=== PATIENT | female | born 1945 | race Caucasian/White ===

== ENCOUNTER 2020-10-24 09:24 | Outpatient (CLI) | payer MEDICARE, OTHER ==
[2020-10-24 11:15] LABS: Hemoglobin 12.6 g/dL (12.0-15.5); Mean Corpuscular Hemoglobin 30.8 pg (27.0-33.0); Mean Corpuscular Volume 96.3 fl (81.6-98.3); Mean Platelet Volume 10.3 fl (7.4-10.4); Platelet Count 275 10x3/uL (150-450); RBC Distribution Width 12.9 % (11.5-14.5); Red Blood Cell (RBC) Count 4.09 10x6/uL (3.90-5.03); White Blood Cell (WBC) Count 5.5 10x3/uL (3.5-10.5)
[2020-10-24 11:25] LABS: Anion Gap 12 mmol/L (10-20); BUN (Urea Nitrogen) 13 mg/dL (9.8-20.1); Calc. Creatinine Clearance 0 mL/min (70-130); Carbon Dioxide 29 mmol/L (23-31); Chloride 103 mmol/L (98-107); Glucose 84 mg/dL (83-110); Potassium 3.7 mmol/L (3.5-5.1); Sodium 140 mmol/L (136-145)
[2020-10-24 11:38] LABS: INR-International Normal Ratio 0.9; PTT 23.9 sec (22.0-33.0); Prothrombin Time 10.3 sec (9.5-12.1)
[2020-10-24 18:20] LABS: SARS-CoV-2 PCR by NAA Not Detected (NotDetected)
== END 2020-10-24 09:25 | disposition home or self-care (01) ==
LOC: LABBT 09:24
PROVIDERS: ATTEND Surgery
DX: Z01.818 Encounter for other preprocedural examination (principal); M51.16 Intervertebral disc disorders with radiculopathy, lumbar region; M48.062 Spinal stenosis, lumbar region with neurogenic claudication; Z20.822 Contact with and (suspected) exposure to COVID-19
CPT/HCPCS: 80048; 85027; 85610; 85730; 93005; U0003; U0005; 87635; 93010

== ENCOUNTER 2020-10-31 10:49 | Outpatient (CLI) | payer MEDICARE, OTHER ==
[2020-10-31 19:01] LABS: SARS-CoV-2 PCR by NAA Not Detected (NotDetected)
== END 2020-10-31 10:50 | disposition home or self-care (01) ==
LOC: LABBT 10:49
PROVIDERS: ATTEND Surgery
DX: Z01.812 Encounter for preprocedural laboratory examination (principal); M51.16 Intervertebral disc disorders with radiculopathy, lumbar region; M48.062 Spinal stenosis, lumbar region with neurogenic claudication; Z20.822 Contact with and (suspected) exposure to COVID-19
CPT/HCPCS: U0003; U0005; 87635

== ENCOUNTER 2020-11-03 06:58 | Day surgery (SDC) | payer MEDICARE, OTHER ==
[2020-11-02 11:41] VITALS: BMI 19.8
[2020-11-03] MEDS ORDERED: Fentanyl 100 MCG/2 ML VIAL ONE ×5 (07:18→15:20)
[2020-11-03] MEDS ORDERED: Thrombin 5000 UNITS/5 ML VIAL ONE (07:23)
[2020-11-03] MEDS ORDERED: Midazolam HCl 2 mg/2 ml Vial ONE (07:38)
[2020-11-03] MEDS ORDERED: ePHEDrine Sulfate 50 MG/10 ML VIAL ONE (08:10)
[2020-11-03] MEDS ORDERED: PHENYLEPHRINE-NS 100 MCG/ML 10 ML SYRINGE ONE (08:10)
[2020-11-03] MEDS ORDERED: Dexamethasone 20 MG/5 ML VIAL ONE (08:10)
[2020-11-03] MEDS ORDERED: PROPOFOL 200 MG/20 ML VIAL ONE (08:10)
[2020-11-03] MEDS ORDERED: Rocuronium Bromide 10 MG/ML (10ML VIAL) ONE (08:10)
[2020-11-03] MEDS ORDERED: Ondansetron PF 4 MG/2 ML Vial ONE (08:10)
[2020-11-03] MEDS ORDERED: Lidocaine 1% PF 5 ML VIAL ONE (08:10)
[2020-11-03] MEDS ORDERED: Glycopyrrolate 0.2 MG/ML 5 ML SYRINGE ONE (08:10)
[2020-11-03] MEDS ORDERED: Phenylephrine 10 MG/ML VIAL ONE (09:13)
[2020-11-03] MEDS ORDERED: Milk Of Magnesia 30 ML UDCUP PO PRN (11:29)
[2020-11-03] MEDS ORDERED: Mag-Al 1200 mg/1200 mg/30 ML UDCUP PO PRN (11:29)
[2020-11-03] MEDS ORDERED: Bisacodyl 10 MG SUPP PR PRN (11:29)
[2020-11-03] MEDS ORDERED: Ondansetron PF 4 MG/2 ML Vial IVP PRN (11:29)
[2020-11-03] MEDS ORDERED: Morphine 2 MG/ML VIAL SLOW IVP PRN (11:29)
[2020-11-03] MEDS ORDERED: tiZANidine HCl 4 MG TAB ONE (13:01)
[2020-11-03] MEDS ORDERED: HYDROcodone/Acetaminophen 5/325 mg Tablet ONE (13:02)
[2020-11-03] MEDS: CEFAZOLIN 2 GM in Premix Bag 1 BAG IVPB SCH (17:08)
[2020-11-03] MEDS: traMADol HCl 50 MG TAB PO PRN ×2 (17:08→23:08)
[2020-11-03] MEDS: Sodium Chloride 0.9% 1,000 ML IV SCH (17:13)
[2020-11-03] MEDS: HYDROcodone/Acetaminophen 7.5/325 mg Tablet PO PRN (19:21)
[2020-11-03] MEDS: Acetaminophen 325 MG TAB PO PRN (21:16)
[2020-11-03] MEDS: tiZANidine HCl 4 MG TAB PO PRN (21:16)
[2020-11-04] MEDS: HYDROcodone/Acetaminophen 7.5/325 mg Tablet PO PRN ×2 (01:15→05:41)
[2020-11-04] MEDS: CEFAZOLIN 2 GM in Premix Bag 1 BAG IVPB SCH (01:16)
[2020-11-04] MEDS: Sodium Chloride 0.9% 1,000 ML IV SCH (01:23)
[2020-11-04] MEDS: Acetaminophen 325 MG TAB PO PRN (03:31)
[2020-11-04 05:45] LABS: #Lymphocytes 1.1 thou/uL (1.20-3.40); #Monocytes 0.8 thou/uL (0.11-0.59); #Neutrophils 8.2 thou/uL (1.40-6.50); %Eosinophils 0.1 % (0.0-10.0); %Lymphocytes 10.8 % (21.0-51.0); %Monocytes 8.2 % (0.0-10.0); %Neutrophils 80.8 % (42.0-75.0); Hemoglobin 9.3 g/dL (12.0-16.0); Mean Corpuscular HGB CONC 32.7 g/dL (32.0-36.0); Mean Corpuscular Hemoglobin 31.9 pg (27.0-31.0); Mean Corpuscular Volume 97.4 fL (78.0-98.0); Mean Platelet Volume 8.1 fL (7.4-10.4); Platelet Count 216 thou/uL (130-400); RBC Distribution Width 11.7 % (11.5-14.5); Red Blood Cell (RBC) Count 2.93 mill/uL (4.20-5.40); White Blood Cell (WBC) Count 10.1 thou/uL (4.8-10.8)
[2020-11-04] MEDS ORDERED: Levothyroxine Sodium 50 MCG TAB PO SCH (06:00)
[2020-11-04 06:09] LABS: Anion Gap 12 mmol/L (10-20); BUN (Urea Nitrogen) 12 mg/dL (9.8-20.1); Calc. Creatinine Clearance 67 mL/min (70-130); Calcium 8.9 mg/dL (7.8-10.44); Carbon Dioxide 24 mmol/L (23-31); Chloride 104 mmol/L (98-107); Glucose 113 mg/dL (83-110); Sodium 136 mmol/L (136-145)
[2020-11-04 07:51] VITALS: BP 91/49; TEMP 98.2
[2020-11-04] MEDS: traMADol HCl 50 MG TAB PO PRN (08:28)
[2020-11-04] MEDS ORDERED: Multivit, Therapeutic 1 TAB PO SCH (09:00)
[2020-11-04] MEDS: tiZANidine HCl 4 MG TAB PO PRN (11:08)
== END 2020-11-04 11:19 | disposition home or self-care (01) ==
LOC: SDC 06:58 → SURG A 11:29 → SDC 11-04 11:19
PROVIDERS: ATTEND Surgery
PROC: 01NB0ZZ Release Lumbar Nerve, Open Approach (ICD-10-PCS; principal; 2020-11-03)
DX: M51.16 Intervertebral disc disorders with radiculopathy, lumbar region (principal); M48.062 Spinal stenosis, lumbar region with neurogenic claudication; Z79.82 Long term (current) use of aspirin; Z79.899 Other long term (current) drug therapy; Z88.5 Allergy status to narcotic agent; Z88.8 Allergy status to other drugs, medicaments and biological substances
CPT/HCPCS: 63047; 63048; 63056; 76000; 80048; 85025; J2270; 36415; J0690; J1100; J2250; J2370; J2405; J2704; J3010; J3370

== ENCOUNTER 2021-08-28 11:01 | Outpatient (CLI) | payer MEDICARE, OTHER | END 2021-08-28 11:02 | disposition home or self-care (01) | LOC: CT 11:01 | PROVIDERS: ATTEND Surgery | DX: M48.062 Spinal stenosis, lumbar region with neurogenic claudication (principal); M51.36 Other intervertebral disc degeneration, lumbar region; M48.07 Spinal stenosis, lumbosacral region; M41.9 Scoliosis, unspecified | CPT/HCPCS: 72131 ==

== ENCOUNTER 2021-12-02 11:19 | Inpatient (IN) | payer MEDICARE, OTHER ==
[~2021-12-02 11:19] MED LIST: Iopamidol 370 76% 100 ML VIAL ONE
[2021-12-02 12:46] LABS: ALT (SGPT) 13 U/L (8-55); AST (SGOT) 20 U/L (5-34); Albumin 3.7 g/dL (3.4-4.8); Alkaline Phosphatase 140 U/L (40-110); Anion Gap 17 mmol/L (10-20); BUN (Urea Nitrogen) 19 mg/dL (9.8-20.1); Bilirubin, Total 0.5 mg/dL (0.2-1.2); CK (CPK) 21 U/L (29-168); Calc. Creatinine Clearance 0 mL/min (70-130); Calcium 9.6 mg/dL (7.8-10.44); Carbon Dioxide 22 mmol/L (23-31); Chloride 102 mmol/L (98-107); Globulin 3.4 g/dL (2.4-3.5); Glucose 80 mg/dL (83-110); Magnesium 2.2 mg/dL (1.6-2.6); Potassium 3.8 mmol/L (3.5-5.1); Protein, Total 7.1 g/dL (5.8-8.1); Sodium 137 mmol/L (136-145)
[2021-12-02 13:03] LABS: Free T4 (Free Thyroxine) 1.21 ng/dL (0.70-1.48)
[2021-12-02 14:02] LABS: #Eosinphils 0.4 thou/uL (0.0-0.7); #Lymphocytes 2.8 thou/uL (1.20-3.40); #Monocytes 0.9 thou/uL (0.11-0.59); #Neutrophils 6.9 thou/uL (1.40-6.50); %Basophils 0.4 % (0.0-1.0); %Eosinophils 3.3 % (0.0-10.0); %Lymphocytes 25.4 % (21.0-51.0); %Monocytes 8.3 % (0.0-10.0); %Neutrophils 62.5 % (42.0-75.0); Hemoglobin 10.8 g/dL (12.0-16.0); Mean Corpuscular HGB CONC 31.5 g/dL (32.0-36.0); Mean Corpuscular Hemoglobin 30.3 pg (27.0-31.0); Mean Corpuscular Volume 96.2 fL (78.0-98.0); Mean Platelet Volume 7.5 fL (7.4-10.4); Platelet Count 305 thou/uL (130-400); Red Blood Cell (RBC) Count 3.56 mill/uL (4.20-5.40); White Blood Cell (WBC) Count 11.1 thou/uL (4.8-10.8)
[2021-12-02 14:16] LABS: INR-International Normal Ratio 0.9; Prothrombin Time 12.6 sec (12.0-14.7)
[2021-12-02 14:17] LABS: PTT 22.8 sec (22.9-36.1)
[2021-12-02] MEDS ORDERED: Enoxaparin Sodium 80 MG/0.8 ML SYRINGE ONE (14:30)
[2021-12-02] MEDS ORDERED: Morphine 2 MG/ML VIAL SLOW IVP PRN (14:37)
[2021-12-02] MEDS ORDERED: traMADol HCl 50 MG TAB PO PRN ×2 (14:37)
[2021-12-02] MEDS ORDERED: Acetaminophen 325 MG TAB PO PRN (14:37)
[2021-12-02] MEDS ORDERED: tiZANidine HCl 4 MG TAB PO PRN (14:42)
[2021-12-02] MEDS ORDERED: Sodium Chloride 0.9% 1,000 ML IV SCH (14:45)
[2021-12-02] MEDS: HYDROcodone/Acetaminophen 7.5/325 mg Tablet PO PRN ×2 (16:54→20:45)
[2021-12-02] MEDS: Sodium Chloride 0.9% 1,000 ML IV SCH (16:55)
[2021-12-02 16:59] VITALS: BMI 21.9
[2021-12-02 18:11] LABS: Bilirubin Negative (Negative); Blood, Urine 1+ (Negative); Clarity Extra Turbid (Clear); Glucose, Urine (Dipstick) Normal (Negative); Ketone, Urine Negative (Negative); Leukocyte 500 Leu/uL (Negative); Nitrite 2+ (Negative); Protein, Urine (Dipstick) 50 mg/dL (Neg-Trace); RBC/HPF 21-50 HPF (0-3); Specific Gravity, Urine 1.025 (1.002-1.036); Squamous Epithelial None Seen HPF (0-3); Urobilinogen Normal mg/dL (Less than 2); WBC/HPF Greater than 50 HPF (0-3)
[2021-12-02 18:18] LABS: Bacteria/HPF 1+ HPF (None Seen)
[2021-12-02 18:19] LABS: Urine Culture Reflex Yes Yes
[2021-12-02] MEDS: Pregabalin 75 MG CAP PO SCH (20:44)
[2021-12-02] MEDS: Apixaban 5 MG TAB PO SCH (20:44)
[2021-12-02 21:50] LABS: SARS-CoV-2 PCR by NAA Not Detected (NotDetected)
[2021-12-03] MEDS: HYDROcodone/Acetaminophen 7.5/325 mg Tablet PO PRN ×6 (02:56→22:44)
[2021-12-03] MEDS: Sodium Chloride 0.9% 1,000 ML IV SCH ×3 (02:56→22:46)
[2021-12-03] MEDS: Levothyroxine Sodium 50 MCG TAB PO SCH (05:17)
[2021-12-03] MEDS: Pregabalin 75 MG CAP PO SCH ×3 (08:16→20:39)
[2021-12-03] MEDS: Apixaban 5 MG TAB PO SCH ×2 (08:16→20:39)
[2021-12-03] MEDS: cefTRIAXone\\ROCEPHIN 1 GM in Sodium Chloride 0.9% 100 ML IVPB SCH (10:35)
[2021-12-03] MEDS ORDERED: Dexamethasone 10 MG/ML VIAL SLOW IVP SCH (13:00)
[2021-12-03] MEDS: Dexamethasone 4 MG TAB PO SCH (18:31)
[2021-12-04] MEDS: Dexamethasone 4 MG TAB PO SCH ×3 (00:34→11:52)
[2021-12-04] MEDS: HYDROcodone/Acetaminophen 7.5/325 mg Tablet PO PRN ×6 (02:49→22:35)
[2021-12-04] MEDS: Levothyroxine Sodium 50 MCG TAB PO SCH (05:19)
[2021-12-04 07:07] LABS: #Lymphocytes 0.5 thou/uL (1.20-3.40); #Monocytes 0.1 thou/uL (0.11-0.59); #Neutrophils 5.4 thou/uL (1.40-6.50); %Basophils 0.7 % (0.0-1.0); %Eosinophils 0.2 % (0.0-10.0); %Lymphocytes 8.7 % (21.0-51.0); %Monocytes 1.7 % (0.0-10.0); %Neutrophils 88.8 % (42.0-75.0); Hemoglobin 10.6 g/dL (12.0-16.0); Mean Corpuscular HGB CONC 31.9 g/dL (32.0-36.0); Mean Corpuscular Volume 97.4 fL (78.0-98.0); Mean Platelet Volume 7.8 fL (7.4-10.4); Platelet Count 327 thou/uL (130-400); RBC Distribution Width 13.9 % (11.5-14.5); Red Blood Cell (RBC) Count 3.42 mill/uL (4.20-5.40); White Blood Cell (WBC) Count 6.1 thou/uL (4.8-10.8)
[2021-12-04 07:37] LABS: Anion Gap 13 mmol/L (10-20); BUN (Urea Nitrogen) 10 mg/dL (9.8-20.1); Calc. Creatinine Clearance 79 mL/min (70-130); Calcium 8.8 mg/dL (7.8-10.44); Carbon Dioxide 21 mmol/L (23-31); Chloride 107 mmol/L (98-107); Glucose 141 mg/dL (83-110); Sodium 137 mmol/L (136-145)
[2021-12-04] MEDS ORDERED: Iopamidol-370 76% 500 ML 1 ML ONE (09:03)
[2021-12-04] MEDS: Sodium Chloride 0.9% 1,000 ML IV SCH ×2 (09:04→18:40)
[2021-12-04] MEDS: Pregabalin 75 MG CAP PO SCH ×3 (09:05→21:01)
[2021-12-04] MEDS: cefTRIAXone\\ROCEPHIN 1 GM in Sodium Chloride 0.9% 100 ML IVPB SCH (09:05)
[2021-12-04] MEDS: Apixaban 5 MG TAB PO SCH ×2 (09:06→21:02)
[2021-12-04] MEDS: Dexamethasone 1 MG TAB PO SCH (18:34)
[2021-12-04] MEDS ORDERED: Polyethylene Glycol 3350 17 GM Packet PO SCH (21:00)
[2021-12-05] MEDS: Dexamethasone 1 MG TAB PO SCH ×5 (00:48→23:57)
[2021-12-05] MEDS: HYDROcodone/Acetaminophen 7.5/325 mg Tablet PO PRN ×6 (02:36→22:28)
[2021-12-05] MEDS: Levothyroxine Sodium 50 MCG TAB PO SCH (05:08)
[2021-12-05] MEDS: Sodium Chloride 0.9% 1,000 ML IV SCH ×2 (05:08→17:03)
[2021-12-05] MEDS ORDERED: Bisacodyl 10 MG SUPP PR PRN (08:47)
[2021-12-05] MEDS ORDERED: Bisacodyl 5 MG TAB PO PRN (08:47)
[2021-12-05] MEDS: Senokot S 8.6-50 MG TAB PO SCH ×2 (09:18→20:07)
[2021-12-05] MEDS: Apixaban 5 MG TAB PO SCH ×2 (09:18→20:05)
[2021-12-05] MEDS: Pregabalin 75 MG CAP PO SCH ×3 (09:18→20:05)
[2021-12-05] MEDS: Ferrous Sulfate 325 MG TAB PO SCH ×2 (09:18→17:25)
[2021-12-05] MEDS: cefTRIAXone\\ROCEPHIN 1 GM in Sodium Chloride 0.9% 100 ML IVPB SCH (09:18)
[2021-12-05] MEDS: Polyethylene Glycol 3350 17 GM Packet PO SCH (09:22)
[2021-12-05] MEDS: Docusate 100 MG CAP PO SCH ×2 (09:25→20:07)
[2021-12-05] MEDS: Ciprofloxacin 500 MG TAB PO SCH (20:05)
[2021-12-06] MEDS: HYDROcodone/Acetaminophen 7.5/325 mg Tablet PO PRN ×6 (02:43→21:57)
[2021-12-06] MEDS: Levothyroxine Sodium 50 MCG TAB PO SCH ×2 (03:47→04:28)
[2021-12-06] MEDS: Ciprofloxacin 500 MG TAB PO SCH ×2 (06:27→20:00)
[2021-12-06] MEDS: Dexamethasone 1 MG TAB PO SCH ×4 (06:28→23:47)
[2021-12-06] MEDS: Polyethylene Glycol 3350 17 GM Packet PO SCH (09:34)
[2021-12-06] MEDS: Ferrous Sulfate 325 MG TAB PO SCH ×2 (09:34→18:12)
[2021-12-06] MEDS: Senokot S 8.6-50 MG TAB PO SCH ×2 (09:34→20:01)
[2021-12-06] MEDS: Pregabalin 75 MG CAP PO SCH ×3 (09:35→20:01)
[2021-12-06] MEDS: Docusate 100 MG CAP PO SCH ×2 (09:35→20:01)
[2021-12-06] MEDS: Apixaban 5 MG TAB PO SCH ×2 (09:35→20:01)
[2021-12-07] MEDS: HYDROcodone/Acetaminophen 7.5/325 mg Tablet PO PRN ×6 (02:22→23:35)
[2021-12-07] MEDS: Levothyroxine Sodium 50 MCG TAB PO SCH ×2 (04:35)
[2021-12-07] MEDS: Ciprofloxacin 500 MG TAB PO SCH ×2 (06:36→20:19)
[2021-12-07] MEDS: Dexamethasone 1 MG TAB PO SCH ×2 (06:36→14:11)
[2021-12-07] MEDS: Apixaban 5 MG TAB PO SCH ×2 (09:12→20:19)
[2021-12-07] MEDS: Polyethylene Glycol 3350 17 GM Packet PO SCH (09:12)
[2021-12-07] MEDS: Docusate 100 MG CAP PO SCH ×2 (09:12→20:21)
[2021-12-07] MEDS: Ferrous Sulfate 325 MG TAB PO SCH ×2 (09:12→17:55)
[2021-12-07] MEDS: Pregabalin 75 MG CAP PO SCH ×3 (09:13→20:20)
[2021-12-07] MEDS: Senokot S 8.6-50 MG TAB PO SCH ×2 (09:13→20:20)
[2021-12-08] MEDS: HYDROcodone/Acetaminophen 7.5/325 mg Tablet PO PRN ×4 (03:36→20:02)
[2021-12-08] MEDS: Levothyroxine Sodium 50 MCG TAB PO SCH (05:56)
[2021-12-08] MEDS: Ciprofloxacin 500 MG TAB PO SCH ×2 (05:56→20:01)
[2021-12-08] MEDS: Ferrous Sulfate 325 MG TAB PO SCH ×2 (08:05→17:41)
[2021-12-08] MEDS: Docusate 100 MG CAP PO SCH ×2 (08:05→20:08)
[2021-12-08] MEDS: Polyethylene Glycol 3350 17 GM Packet PO SCH (08:05)
[2021-12-08] MEDS: Senokot S 8.6-50 MG TAB PO SCH ×2 (08:05→20:08)
[2021-12-08 08:28] LABS: Anion Gap 11 mmol/L (10-20); BUN (Urea Nitrogen) 13 mg/dL (9.8-20.1); Calc. Creatinine Clearance 76 mL/min (70-130); Calcium 8.6 mg/dL (7.8-10.44); Carbon Dioxide 26 mmol/L (23-31); Chloride 105 mmol/L (98-107); Glucose 88 mg/dL (83-110); Potassium 3.8 mmol/L (3.5-5.1); Sodium 138 mmol/L (136-145)
[2021-12-08 08:32] LABS: Troponin I Less than 0.010 ng/mL (< 0.028)
[2021-12-08] MEDS: Apixaban 5 MG TAB PO SCH ×2 (08:47→20:01)
[2021-12-08] MEDS: Pregabalin 75 MG CAP PO SCH ×3 (08:47→20:02)
[2021-12-08] MEDS ORDERED: Regadenoson 0.4 MG/5 ML SYRINGE ONE (14:26)
[2021-12-09] MEDS: HYDROcodone/Acetaminophen 7.5/325 mg Tablet PO PRN ×4 (00:04→12:00)
[2021-12-09] MEDS: Levothyroxine Sodium 50 MCG TAB PO SCH (05:58)
[2021-12-09] MEDS: Ciprofloxacin 500 MG TAB PO SCH (05:58)
[2021-12-09] MEDS: Pregabalin 75 MG CAP PO SCH (08:36)
[2021-12-09] MEDS: Docusate 100 MG CAP PO SCH ×2 (08:36→08:51)
[2021-12-09] MEDS: Polyethylene Glycol 3350 17 GM Packet PO SCH ×2 (08:37→08:52)
[2021-12-09] MEDS: Senokot S 8.6-50 MG TAB PO SCH ×2 (08:37→08:52)
[2021-12-09] MEDS: Apixaban 5 MG TAB PO SCH (08:37)
[2021-12-09] MEDS: Ferrous Sulfate 325 MG TAB PO SCH (08:37)
[2021-12-09 11:39] VITALS: BP 101/61; TEMP 98.2
== END 2021-12-09 14:40 | disposition home health service (06) | DRG 299 ==
LOC: ERS 11:19 → OBSVTOIN 14:36 → SJJU 14:36
PROVIDERS: ADMIT Family Medicine; ATTEND Internal Medicine
DX: I82.412 Acute embolism and thrombosis of left femoral vein (principal); I50.21 Acute systolic (congestive) heart failure; D62 Acute posthemorrhagic anemia; N30.00 Acute cystitis without hematuria; M80.08XA Age-related osteoporosis with current pathological fracture, vertebra(e), initial encounter for fracture; I42.9 Cardiomyopathy, unspecified; I82.413 Acute embolism and thrombosis of femoral vein, bilateral; I82.432 Acute embolism and thrombosis of left popliteal vein; I82.442 Acute embolism and thrombosis of left tibial vein; G25.0 Essential tremor; G89.29 Other chronic pain; M54.50 Low back pain, unspecified; M41.9 Scoliosis, unspecified; B96.5 Pseudomonas (aeruginosa) (mallei) (pseudomallei) as the cause of diseases classified elsewhere; E03.9 Hypothyroidism, unspecified; I44.7 Left bundle-branch block, unspecified; R00.1 Bradycardia, unspecified; K59.00 Constipation, unspecified; Z88.5 Allergy status to narcotic agent; Z88.8 Allergy status to other drugs, medicaments and biological substances; Z98.1 Arthrodesis status; Z98.49 Cataract extraction status, unspecified eye; Z79.899 Other long term (current) drug therapy; Z79.890 Hormone replacement therapy
CPT/HCPCS: 36415; 71045; 71275; 72100; 72131; 72193; 78452; 80048; 80053; 81001; 82550; 83605; 83735; 83880; 84439; 84443; 84484; 85025; 85610; 85652; 85730; 86140; 87040; 87077; 87086; 87186; 93005; 93010; 93017; 93306; 93970; 94760; 96372; A9500; J0696; J1100; J1650; J2270; J2785; J3490; J7050; J8540; Q9967; U0003; U0005